=== PATIENT | female | born 1940 | race Hispanic/Latino ===

== ENCOUNTER 2019-07-15 22:51 | Emergency (ER) | payer MEDICARE ==
[~2019-07-15 22:51] MED LIST: ACET1TAB25 PO; ALBU1.252 IH; AMLO5TAB9 PO; ASPI-1197 PO; BUDE10.2 IH; CHOL100044 PO; CYAN25006 SL; DONE5TAB26 PO; DOXY100C40 PO; ESOM40CA PO; FERR325T22 PO; FOLI0.4T2 PO; GABA-531 PO; GLIP5TAB97 PO; LOSA25TA41 PO; METF750T46 PO; PRED20TA3 PO; ROSU40TA21 PO; SITA100T12 PO; SUCR1TAB2 PO
[2019-07-15] MEDS ORDERED: ASPIRIN 325 MG TABLET ONE (23:12)
[2019-07-15 23:21] LABS: BASOPHILS % (AUTO) 2.4 % (0.0-5.0); EOSINOPHILS % (AUTO) 2.6 % (0.0-8.0); HEMATOCRIT 28.1 % (36-48); LYMPHOCYTES % (AUTO) 20.2 % (21.0-51.0); MEAN CORPUSCULAR HEMOGLOBIN 27.9 pg (27.0-33.0); MEAN CORPUSCULAR HGB CONC 33.3 g/dL (32.0-36.0); MEAN CORPUSCULAR VOLUME 83.6 fL (79-99); MONOCYTES % (AUTO) 10.4 % (3.0-13.0); NEUTROPHILS % (AUTO) 64.4 % (40.0-77.0); PLATELET COUNT (AUTO) 304 K/uL (130-400); RED BLOOD CELL COUNT(AUTO) 3.37 MIL/uL (4.00-5.50); RED CELL DISTRIBUTION WIDTH 17.1 % (11.0-15.5); WHITE BLOOD COUNT (AUTO) 7.8 K/uL (4.8-10.8)
[2019-07-15 23:31] LABS: CREATININE 0.7 mg/dL (0.5-1.5); POTASSIUM 3.9 mmol/L (3.5-5.1)
[2019-07-15 23:32] LABS: PARTIAL THROMBOPLASTIN TIME 29.9 SEC (26.3-35.5)
[2019-07-15 23:37] LABS: ALBUMIN 3.7 g/dL (3.5-5.0); BILIRUBIN,TOTAL 0.3 mg/dL (0.2-1.0); TOTAL PROTEIN, SERUM 8.1 g/dL (6.0-8.3)
[2019-07-15 23:41] LABS: INR 0.97 (0.85-1.15); PROTHROMBIN TIME 10.2 SEC (9.6-11.6)
[2019-07-15 23:53] LABS: APPEARANCE,URINE Clear (CLEAR); BILIRUBIN,URINE Negative (NEGATIVE); COLOR,URINE Yellow (YELLOW); GLUCOSE, URINE (UA) >=1000 mg/dL (NEGATIVE); KETONES,URINE 15 mg/dL (NEGATIVE); LEUKOCYTE ESTERASE ,URINE Negative (NEGATIVE); NITRATE,URINE Negative (NEGATIVE); OCCULT BLOOD,URINE Negative (NEGATIVE); PH,URINE 6.5 (5.0-8.0); PROTEIN,URINE Negative (NEGATIVE)
[2019-07-16 00:17] LABS: BACTERIA,URINE None Seen /HPF (None Seen); RBC,URINE None Seen /HPF (0-1); WBC,URINE None Seen /HPF (0-1)
[2019-07-16] MEDS ORDERED: PREDNISONE 20 MG TABLET ONE (01:45)
== END 2019-07-16 01:53 | disposition home or self-care (01) ==
LOC: EDH 22:51
DX: J45.901 Unspecified asthma with (acute) exacerbation (principal); E11.9 Type 2 diabetes mellitus without complications; E78.5 Hyperlipidemia, unspecified; I10 Essential (primary) hypertension; M19.90 Unspecified osteoarthritis, unspecified site; Z88.8 Allergy status to other drugs, medicaments and biological substances; Z90.710 Acquired absence of both cervix and uterus; Z98.890 Other specified postprocedural states
CPT/HCPCS: 36415; 71045; 80053; 81001; 82550; 84484; 85025; 85610; 85730; 93005

== ENCOUNTER 2019-12-12 23:08 | Observation (INO) | payer MEDICARE ==
[~2019-12-12] VITALS: Ht 149.9 cm; Wt 45.8 kg
[2019-12-12 23:27] LABS: BASOPHILS % (AUTO) 0.4 % (0.0-5.0); EOSINOPHILS % (AUTO) 4.2 % (0.0-8.0); HEMATOCRIT 27.1 % (36-48); LYMPHOCYTES % (AUTO) 37.4 % (21.0-51.0); MEAN CORPUSCULAR HEMOGLOBIN 27.3 pg (27.0-33.0); MEAN CORPUSCULAR HGB CONC 33.2 g/dL (32.0-36.0); MEAN CORPUSCULAR VOLUME 82.1 fL (79-99); MONOCYTES % (AUTO) 9.6 % (3.0-13.0); NEUTROPHILS % (AUTO) 48.2 % (40.0-77.0); PLATELET COUNT (AUTO) 322 K/uL (130-400); RED CELL DISTRIBUTION WIDTH 15.6 % (11.0-15.5); WHITE BLOOD COUNT (AUTO) 5.2 K/uL (4.8-10.8)
[2019-12-12 23:38] LABS: CREATININE 0.8 mg/dL (0.5-1.5); POTASSIUM 3.8 mmol/L (3.5-5.1)
[2019-12-12 23:40] LABS: INR 0.97 (0.85-1.15); PARTIAL THROMBOPLASTIN TIME 29.6 SEC (26.3-35.5); PROTHROMBIN TIME 10.5 SEC (9.6-11.6)
[2019-12-12 23:42] LABS: ALBUMIN 3.1 g/dL (3.5-5.0); BILIRUBIN,TOTAL 0.2 mg/dL (0.2-1.0); TOTAL PROTEIN, SERUM 7.3 g/dL (6.0-8.3)
[2019-12-13 00:07] LABS: APPEARANCE,URINE Clear (CLEAR); BILIRUBIN,URINE Negative (NEGATIVE); COLOR,URINE Yellow (YELLOW); GLUCOSE, URINE (UA) >=1000 mg/dL (NEGATIVE); KETONES,URINE Negative (NEGATIVE); LEUKOCYTE ESTERASE ,URINE Negative (NEGATIVE); NITRATE,URINE Negative (NEGATIVE); OCCULT BLOOD,URINE Negative (NEGATIVE); PROTEIN,URINE Negative (NEGATIVE); UROBILINOGEN,URINE 0.2 mg/dL (0.2-1.0)
[2019-12-13] MEDS ORDERED: INSULIN HUMULIN R 100 UNIT/ML 3ML ONE (00:44)
[2019-12-13] MEDS ORDERED: SODIUM CHLORIDE 0.9% 1000ML 1,000 ML IV ONE (00:57)
[2019-12-13 00:58] LABS: BACTERIA,URINE Rare /HPF (None Seen); RBC,URINE 0-1 /HPF (0-1); WBC,URINE 0-1 /HPF (0-1); YEAST,URINE BUDDING Rare /HPF (None Seen)
[2019-12-13] MEDS ORDERED: ACETAMINOPHEN 325 MG TAB PO PRN ×2 (01:30)
[2019-12-13] MEDS ORDERED: ONDANSETRON HCL 4 MG/2 ML VIAL IVP PRN (01:30)
[2019-12-13] MEDS: SODIUM CHLORIDE 0.9% 1000ML 1,000 ML IV SCH ×2 (01:30→14:50)
[2019-12-13] MEDS ORDERED: ENOXAPARIN SODIUM 40 MG/0.4 ML SYRINGE SQ SCH (02:00)
[2019-12-13 02:30] VITALS: BP 115/57
[2019-12-13] MEDS ORDERED: GLIP10TA19 PO (02:44)
[2019-12-13] MEDS ORDERED: ACET-2743 PO (02:44)
[2019-12-13] MEDS ORDERED: MONT10TA26 PO (02:44)
[2019-12-13] MEDS ORDERED: TELM40TA8 PO (02:44)
[2019-12-13] MEDS ORDERED: [UNRECOGNIZED DRUG - CODE] PO (02:44)
[2019-12-13] MEDS ORDERED: AMLO5TAB9 PO (02:44)
[2019-12-13] MEDS ORDERED: METF-446 PO (02:44)
[2019-12-13] MEDS ORDERED: NAPR220C62 PO (02:44)
[2019-12-13] MEDS ORDERED: SIMV-43 PO (02:44)
[2019-12-13] MEDS ORDERED: OMEP20TA25 PO (02:44)
[2019-12-13 05:19] LABS: BASOPHILS % (AUTO) 0.3 % (0.0-5.0); EOSINOPHILS % (AUTO) 3.1 % (0.0-8.0); HEMATOCRIT 26.6 % (36-48); LYMPHOCYTES % (AUTO) 30.2 % (21.0-51.0); MEAN CORPUSCULAR HEMOGLOBIN 26.9 pg (27.0-33.0); MEAN CORPUSCULAR HGB CONC 32.7 g/dL (32.0-36.0); MEAN CORPUSCULAR VOLUME 82.1 fL (79-99); MONOCYTES % (AUTO) 10.3 % (3.0-13.0); NEUTROPHILS % (AUTO) 55.8 % (40.0-77.0); PLATELET COUNT (AUTO) 258 K/uL (130-400); RED BLOOD CELL COUNT(AUTO) 3.24 MIL/uL (4.00-5.50); RED CELL DISTRIBUTION WIDTH 15.5 % (11.0-15.5); WHITE BLOOD COUNT (AUTO) 6.2 K/uL (4.8-10.8)
[2019-12-13 05:34] LABS: CREATININE 0.6 mg/dL (0.5-1.5); POTASSIUM 3.8 mmol/L (3.5-5.1)
[2019-12-13] MEDS: PANTOPRAZOLE SODIUM 40 MG TABLET.DR PO SCH (06:48)
[2019-12-13 08:00] VITALS: BP 122/65
[2019-12-13] MEDS ORDERED: POTASSIUM CHLORIDE 20 MEQ ERTAB PO PRN (08:45)
[2019-12-13] MEDS ORDERED: LIDOCAINE HCL-MPF 1% 2ML VIAL IV PRN (08:45)
[2019-12-13] MEDS ORDERED: POTASSIUM CHLORIDE 20MEQ/100ML 100 ML IV PRN (08:45)
[2019-12-13] MEDS ORDERED: DEXTROSE 50%-WATER 50 ML DISP.SYRIN IV PRN (08:45)
[2019-12-13] MEDS ORDERED: POTASSIUM CHLORIDE 10% ELIXIR 20 MEQ/15 ML UDCUP PO PRN (08:45)
[2019-12-13] MEDS ORDERED: GLUCAGON 1MG KIT 1 MG ML IM PRN (08:45)
[2019-12-13 09:01] LABS: MAGNESIUM 1.6 mg/dL (1.80-2.40); PHOSPHORUS 2.9 mg/dL (2.5-4.9)
[2019-12-13] MEDS: LOSARTAN 50 MG TABLET PO SCH (09:30)
[2019-12-13] MEDS: AMLODIPINE BESYLATE 5 MG TAB PO SCH (09:31)
[2019-12-13] MEDS: MONTELUKAST SODIUM 10 MG TAB PO SCH (09:31)
[2019-12-13] MEDS: GLIPIZIDE XL 10MG TAB PO SCH (09:31)
[2019-12-13] MEDS: ASPIRIN 81MG TAB.CHEW PO SCH (09:31)
[2019-12-13] MEDS: GABAPENTIN 300 MG CAPSULE PO SCH ×3 (09:31→20:54)
[2019-12-13 11:46] VITALS: BP 126/55
[2019-12-13] MEDS: INSULIN HUMULIN R 100 UNIT/ML 3ML SQ SCH ×3 (12:35→20:57)
[2019-12-13 16:00] VITALS: BP 106/56
[2019-12-13] MEDS ORDERED: IOHEXOL-350 75 ML VIAL IV ONE (16:30)
[2019-12-13] MEDS: METFORMIN HCL 500 MG TABLET PO SCH (16:53)
--- NOTE | 2019-12-13 18:44 | NUR ---
Transferred to [facility] via EMS after report given at 181; pt. to [facility] via stretcher by ambulance. Castillo cath intact, flushing well to R chest; Dressings to abdomen and coccyx changed per MD order. LS diminished, suctioned of small amt frothy white sputum. Discharge complete.
[2019-12-13 19:41] VITALS: BP 120/58
[2019-12-13] MEDS: ENOXAPARIN SODIUM 40 MG/0.4 ML SYRINGE SQ SCH (20:55)
[2019-12-13] MEDS ORDERED: SIMVASTATIN 20 MG TABLET PO SCH (21:00)
[2019-12-14] VITALS: BP 104/51
[2019-12-14 04:00] VITALS: BP 99/53
[2019-12-14] MEDS: SODIUM CHLORIDE 0.9% 1000ML 1,000 ML IV SCH (04:28)
--- NOTE | 2019-12-14 04:29 | NUR ---
HOLD METFORMIN MORNING DOSE OF METFORMIN HELD AT THIS TIME DUE TO PT HAVING CTA CHEST WITHIN THE LAST 24 HOURS
[2019-12-14] MEDS: METFORMIN HCL 500 MG TABLET PO SCH (04:33)
[2019-12-14 04:59] LABS: HEMATOCRIT 28.7 % (36-48); MEAN CORPUSCULAR HGB CONC 32.4 g/dL (32.0-36.0); MEAN CORPUSCULAR VOLUME 83.2 fL (79-99); PLATELET COUNT (AUTO) 297 K/uL (130-400); RED BLOOD CELL COUNT(AUTO) 3.45 MIL/uL (4.00-5.50); RED CELL DISTRIBUTION WIDTH 15.9 % (11.0-15.5); WHITE BLOOD COUNT (AUTO) 6.4 K/uL (4.8-10.8)
[2019-12-14 05:27] LABS: CREATININE 0.6 mg/dL (0.5-1.5); POTASSIUM 3.7 mmol/L (3.5-5.1)
[2019-12-14] MEDS: PANTOPRAZOLE SODIUM 40 MG TABLET.DR PO SCH (06:41)
[2019-12-14] MEDS: INSULIN HUMULIN R 100 UNIT/ML 3ML SQ SCH ×2 (06:42→11:58)
[2019-12-14 08:00] VITALS: BP 102/55
[2019-12-14] MEDS: GABAPENTIN 300 MG CAPSULE PO SCH (09:21)
[2019-12-14] MEDS: ASPIRIN 81MG TAB.CHEW PO SCH (09:21)
[2019-12-14] MEDS: GLIPIZIDE XL 10MG TAB PO SCH (09:21)
[2019-12-14] MEDS: MONTELUKAST SODIUM 10 MG TAB PO SCH (09:21)
[2019-12-14] MEDS: LOSARTAN 50 MG TABLET PO SCH (09:22)
[2019-12-14] MEDS: AMLODIPINE BESYLATE 5 MG TAB PO SCH (09:22)
[2019-12-14] MEDS: ENOXAPARIN SODIUM 40 MG/0.4 ML SYRINGE SQ SCH (09:23)
[2019-12-14 11:28] VITALS: BP 124/72
--- NOTE | 2019-12-14 11:33 | NUR ---
SHORT STAY PATIENT , CHEST PAIN, AMI RULED OUT, POSS DC THIS AFTERNOON, NO TRIGGERS TO CM, OBS PATIENT- DETAILED CM ASSESSMENT DEFERRED AT THIS TIME NO CONCERNS VOICED BY RN OR PATIENT Addendum: 12/14/19 at 1135 by PANFILO YATES RN CM Amended: Links added.
--- NOTE | 2019-12-14 14:55 | NUR ---
Patient given discharge instruction and verbalized understanding, reviewed medication and follow-up , denies pain at this time ,no questions or concerns voice and patient taking down to ER lobby via wheelchair and left with family for home.
== END 2019-12-14 15:01 | disposition home or self-care (01) ==
LOC: EDH 23:08 → EDHIP 12-13 00:54 → 4DH 12-13 02:48
PROVIDERS: ADMIT Internal Medicine Critical Care Medicine; ATTEND Internal Medicine Critical Care Medicine
DX: R07.89 Other chest pain (principal); I24.9 Acute ischemic heart disease, unspecified; J44.9 Chronic obstructive pulmonary disease, unspecified; R55 Syncope and collapse; R42 Dizziness and giddiness; E78.5 Hyperlipidemia, unspecified; E87.1 Hypo-osmolality and hyponatremia; E11.9 Type 2 diabetes mellitus without complications; K29.70 Gastritis, unspecified, without bleeding; I10 Essential (primary) hypertension; Z90.710 Acquired absence of both cervix and uterus; Z88.8 Allergy status to other drugs, medicaments and biological substances
CPT/HCPCS: 36415 ×3; 71045 ×3; 71275; 80048 ×2; 80053; 81001; 82550; 82948 ×6; 83735; 83880; 84100; 84484 ×3; 85025 ×2; 85027; 85378; 85610; 85730; 93005; 93970; 96360; 96361; 96372 ×2; 99285; G0378 ×25; J1650 ×4; J1815 ×4; J7030; Q9967

== ENCOUNTER 2020-01-09 15:48 | Emergency (ER) | payer MEDICARE ==
[~2020-01-09 15:48] MED LIST changes: +ACET-2743 PO; -ACET1TAB25 PO; -ALBU1.252 IH; -BUDE10.2 IH; -CHOL100044 PO; -CYAN25006 SL; -DONE5TAB26 PO; -DOXY100C40 PO; -ESOM40CA PO; -FERR325T22 PO; -FOLI0.4T2 PO; +GLIP10TA19 PO; -GLIP5TAB97 PO; -LOSA25TA41 PO; +METF-446 PO; -METF750T46 PO; +MONT10TA26 PO; +NAPR220C62 PO; +OMEP20TA25 PO; -PRED20TA3 PO; -ROSU40TA21 PO; +SIMV-43 PO; -SITA100T12 PO; +TELM40TA8 PO; +[UNRECOGNIZED DRUG - CODE] PO
[2020-01-09 16:23] LABS: BASOPHILS % (AUTO) 0.3 % (0.0-5.0); EOSINOPHILS % (AUTO) 2.7 % (0.0-8.0); HEMATOCRIT 27.7 % (36-48); LYMPHOCYTES % (AUTO) 33.6 % (21.0-51.0); MEAN CORPUSCULAR HEMOGLOBIN 26.5 pg (27.0-33.0); MEAN CORPUSCULAR HGB CONC 32.1 g/dL (32.0-36.0); MEAN CORPUSCULAR VOLUME 82.4 fL (79-99); NEUTROPHILS % (AUTO) 54.1 % (40.0-77.0); PLATELET COUNT (AUTO) 375 K/uL (130-400); RED BLOOD CELL COUNT(AUTO) 3.36 MIL/uL (4.00-5.50); RED CELL DISTRIBUTION WIDTH 15.3 % (11.0-15.5); WHITE BLOOD COUNT (AUTO) 6.6 K/uL (4.8-10.8)
[2020-01-09 16:50] LABS: CREATININE 0.6 mg/dL (0.5-1.5); MAGNESIUM 1.5 mg/dL (1.80-2.40); POTASSIUM 4.1 mmol/L (3.5-5.1)
[2020-01-09] MEDS ORDERED: MAGNESIUM OXIDE 400 MG TABLET PO ONE (18:19)
== END 2020-01-09 19:14 | disposition home or self-care (01) ==
LOC: EDH 15:48
DX: E87.1 Hypo-osmolality and hyponatremia (principal); E11.9 Type 2 diabetes mellitus without complications; E78.5 Hyperlipidemia, unspecified; I10 Essential (primary) hypertension; M19.90 Unspecified osteoarthritis, unspecified site; Z88.2 Allergy status to sulfonamides; Z88.8 Allergy status to other drugs, medicaments and biological substances; Z90.710 Acquired absence of both cervix and uterus
CPT/HCPCS: 36415; 80048; 83735; 85025; 93005

== ENCOUNTER 2021-01-06 03:37 | Emergency (ER) | payer MEDICARE ==
[~2021-01-06 03:37] MED LIST changes: +AMLO-257 PO; -AMLO5TAB9 PO; +IBUP-43 PO; -MONT10TA26 PO; +MONT10TA32 PO; -[UNRECOGNIZED DRUG - CODE] PO
[2021-01-06 04:02] LABS: BASOPHILS % (AUTO) 0.3 % (0.0-5.0); LYMPHOCYTES % (AUTO) 34.7 % (21.0-51.0); MEAN CORPUSCULAR HEMOGLOBIN 24.5 pg (27.0-33.0); MEAN CORPUSCULAR HGB CONC 30.7 g/dL (32.0-36.0); MEAN CORPUSCULAR VOLUME 79.8 fL (79-99); MONOCYTES % (AUTO) 8.7 % (3.0-13.0); NEUTROPHILS % (AUTO) 52.1 % (40.0-77.0); PLATELET COUNT (AUTO) 344 K/uL (130-400); RED BLOOD CELL COUNT(AUTO) 3.76 MIL/uL (4.00-5.50); RED CELL DISTRIBUTION WIDTH 16.9 % (11.0-15.5); WHITE BLOOD COUNT (AUTO) 6.3 K/uL (4.8-10.8)
[2021-01-06 04:10] LABS: APPEARANCE,URINE Clear (CLEAR); BILIRUBIN,URINE Negative (NEGATIVE); COLOR,URINE Yellow (YELLOW); GLUCOSE, URINE (UA) TRACE mg/dL (NEGATIVE); KETONES,URINE Negative (NEGATIVE); LEUKOCYTE ESTERASE ,URINE Trace (NEGATIVE); NITRATE,URINE Negative (NEGATIVE); OCCULT BLOOD,URINE Negative (NEGATIVE); PROTEIN,URINE Negative (NEGATIVE); UROBILINOGEN,URINE 0.2 mg/dL (0.2-1.0)
[2021-01-06 04:12] LABS: CREATININE 0.7 mg/dL (0.5-1.5); POTASSIUM 3.6 mmol/L (3.5-5.1)
[2021-01-06 04:16] LABS: ALBUMIN 3.8 g/dL (3.5-5.0); BILIRUBIN,TOTAL 0.3 mg/dL (0.2-1.0); TOTAL PROTEIN, SERUM 8.3 g/dL (6.0-8.3)
[2021-01-06 04:17] LABS: INR 1.05 (0.85-1.15); PROTHROMBIN TIME 11.4 SEC (9.6-11.6)
[2021-01-06 04:18] LABS: PARTIAL THROMBOPLASTIN TIME 30.2 SEC (26.3-35.5)
[2021-01-06 04:25] LABS: BACTERIA,URINE Few /HPF (None Seen); RBC,URINE 0-1 /HPF (0-1); WBC,URINE 0-1 /HPF (0-1)
[2021-01-06] MEDS ORDERED: CEFTRIAXONE SODIUM 1 GM ONE (05:42)
== END 2021-01-06 06:44 | disposition home or self-care (01) ==
LOC: EDH 03:37
DX: N39.0 Urinary tract infection, site not specified (principal); M19.90 Unspecified osteoarthritis, unspecified site; E11.9 Type 2 diabetes mellitus without complications; E78.5 Hyperlipidemia, unspecified; I10 Essential (primary) hypertension; Z90.710 Acquired absence of both cervix and uterus; Z88.2 Allergy status to sulfonamides
CPT/HCPCS: 36415; 80053; 81001; 84484; 85025; 85610; 85730; 93005; 96365; 99284; J0696

== ENCOUNTER 2022-05-10 22:26 | Observation (INO) | payer OTHER, MEDICARE ==
[~2022-05-10] VITALS: Ht 139.7 cm; Wt 50.6 kg
[~2022-05-10 22:26] MED LIST changes: -IBUP-43 PO; +IBUP-44 PO; +MONT-39 PO; -MONT10TA32 PO; +OMEP20TA20 PO; -OMEP20TA25 PO
[2022-05-10] MEDS ORDERED: ONDANSETRON 4MG INJ ONE (22:42)
[2022-05-10] MEDS ORDERED: MORPHINE 4 MG SYG ONE (22:42)
[2022-05-10 22:47] LABS: BASOPHILS % (AUTO) 0.2 % (0.0-5.0); EOSINOPHILS % (AUTO) 1.4 % (0.0-8.0); HEMATOCRIT 25.9 % (36-48); MEAN CORPUSCULAR HEMOGLOBIN 24.3 pg (27.0-33.0); MEAN CORPUSCULAR HGB CONC 31.7 g/dL (32.0-36.0); MEAN CORPUSCULAR VOLUME 76.9 fL (79-99); MONOCYTES % (AUTO) 7.3 % (3.0-13.0); NEUTROPHILS % (AUTO) 80.6 % (40.0-77.0); PLATELET COUNT (AUTO) 327 K/uL (130-400); RED BLOOD CELL COUNT(AUTO) 3.37 MIL/uL (4.00-5.50); RED CELL DISTRIBUTION WIDTH 18.7 % (11.0-15.5); WHITE BLOOD COUNT (AUTO) 11.9 K/uL (4.8-10.8)
[2022-05-10 23:09] LABS: CREATININE 0.7 mg/dL (0.5-1.5); POTASSIUM 3.6 mmol/L (3.5-5.1)
[2022-05-10 23:13] LABS: ALBUMIN 3.3 g/dL (3.5-5.0); TOTAL PROTEIN, SERUM 7.5 g/dL (6.0-8.3)
[2022-05-11] MEDS ORDERED: 0.9%NACL 1000ML 1,000 ML IV ONE (00:30)
[2022-05-11 00:32] LABS: APPEARANCE,URINE CLEAR (CLEAR); BILIRUBIN,URINE NEGATIVE (NEGATIVE); COLOR,URINE YELLOW (YELLOW); GLUCOSE, URINE (UA) >=1000 mg/dL (NEGATIVE); KETONES,URINE 5 mg/dL (NEGATIVE); LEUKOCYTE ESTERASE ,URINE NEGATIVE (NEGATIVE); NITRATE,URINE NEGATIVE (NEGATIVE); OCCULT BLOOD,URINE NEGATIVE (NEGATIVE); PROTEIN,URINE NEGATIVE (NEGATIVE); UROBILINOGEN,URINE 0.2 mg/dL (0.2-1.0)
[2022-05-11] MEDS ORDERED: DONE10TA43 PO (00:38)
[2022-05-11 00:39] LABS: BACTERIA,URINE Few /HPF (None Seen); RBC,URINE 0-1 /HPF (0-1); SQUAMOUS EPITHELIAL CELL,UR 0-2 /HPF (0-2); WBC,URINE 0-1 /HPF (0-1)
[2022-05-11] MEDS ORDERED: DAPA10TA PO (00:42)
[2022-05-11] MEDS ORDERED: CHOL400T33 PO (00:42)
[2022-05-11] MEDS ORDERED: CYAN250010 PO (00:42)
[2022-05-11] MEDS ORDERED: HYDRALAZINE 20MG/ML VIAL IV PRN (01:00)
[2022-05-11] MEDS ORDERED: MORPHINE 2 MG SYG IVP PRN (01:00)
[2022-05-11] MEDS ORDERED: LABETALOL 20MG SYG IV PRN (01:00)
[2022-05-11] MEDS ORDERED: MORPHINE 4 MG SYG IVP PRN (01:00)
[2022-05-11] MEDS ORDERED: HYDROMORPHONE 1 MG INJ IVP PRN (01:00)
[2022-05-11] MEDS ORDERED: ONDANSETRON 4MG INJ IVP PRN (01:00)
[2022-05-11] MEDS ORDERED: CLONIDINE HCL 0.1 MG TABLET PO PRN (01:00)
[2022-05-11] MEDS ORDERED: MORPHINE 4 MG SYG ONE (01:04)
[2022-05-11] MEDS ORDERED: KETOROLAC 15MG/ML VIAL (15MG/ML) ONE (01:04)
[2022-05-11] MEDS ORDERED: KETOROLAC 15MG/ML VIAL (15MG/ML) IV ONE (01:30)
[2022-05-11] MEDS ORDERED: MORPHINE 4 MG SYG IVP ONE (01:30)
[2022-05-11 01:50] VITALS: BP 191/86
[2022-05-11] MEDS: HYDROCODONE/ACETAMINOPHEN 5/325 MG TAB PO PRN ×2 (03:11→20:56)
[2022-05-11 04:00] VITALS: BP 140/71
[2022-05-11] MEDS ORDERED: ALPRAZOLAM 0.25 MG TABLET ONE (04:09)
[2022-05-11] MEDS ORDERED: ALPRAZOLAM 0.25 MG TABLET PO ONE (04:30)
[2022-05-11 04:47] LABS: HEMATOCRIT 24.7 % (36-48); MEAN CORPUSCULAR HEMOGLOBIN 24.4 pg (27.0-33.0); MEAN CORPUSCULAR HGB CONC 31.6 g/dL (32.0-36.0); MEAN CORPUSCULAR VOLUME 77.2 fL (79-99); RED BLOOD CELL COUNT(AUTO) 3.2 MIL/uL (4.00-5.50); RED CELL DISTRIBUTION WIDTH 18.6 % (11.0-15.5); WHITE BLOOD COUNT (AUTO) 12.3 K/uL (4.8-10.8)
[2022-05-11 05:06] LABS: CREATININE 0.8 mg/dL (0.5-1.5); PHOSPHORUS 3.9 mg/dL (2.5-4.9); POTASSIUM 3.7 mmol/L (3.5-5.1)
[2022-05-11] MEDS: INSULIN HUMULIN R 100 UNIT/ML 3ML SQ SCH ×4 (06:12→20:50)
[2022-05-11 07:00] VITALS: BP 117/58
[2022-05-11] MEDS: ENOXAPARIN SODIUM 40 MG/0.4 ML SYRINGE SQ SCH (08:56)
[2022-05-11 11:00] VITALS: BP 179/74
[2022-05-11] MEDS: HYDROMORPHONE 1 MG INJ IVP PRN ×2 (11:16→17:25)
[2022-05-11] MEDS: LACTATED RINGERS 1000ML 1,000 ML IV SCH ×2 (11:18→20:55)
[2022-05-11 15:00] VITALS: BP 143/76
[2022-05-11] MEDS: ALPRAZOLAM 0.25 MG TABLET PO PRN (19:48)
[2022-05-11 20:00] VITALS: BP 163/67
[2022-05-12] VITALS: BP 147/60
[2022-05-12] MEDS: HYDROMORPHONE 1 MG INJ IVP PRN ×2 (03:19→11:27)
[2022-05-12 04:00] VITALS: BP 151/64
[2022-05-12 04:40] LABS: INR 1.01 (0.85-1.15)
[2022-05-12 04:41] LABS: PARTIAL THROMBOPLASTIN TIME 32.2 SEC (26.3-35.5)
[2022-05-12 04:52] LABS: BASOPHILS % (AUTO) 0.3 % (0.0-5.0); EOSINOPHILS % (AUTO) 2.8 % (0.0-8.0); HEMATOCRIT 22.1 % (36-48); LYMPHOCYTES % (AUTO) 15.7 % (21.0-51.0); MEAN CORPUSCULAR HEMOGLOBIN 24.6 pg (27.0-33.0); MEAN CORPUSCULAR HGB CONC 32.1 g/dL (32.0-36.0); MEAN CORPUSCULAR VOLUME 76.5 fL (79-99); MONOCYTES % (AUTO) 9.1 % (3.0-13.0); NEUTROPHILS % (AUTO) 71.7 % (40.0-77.0); PLATELET COUNT (AUTO) 302 K/uL (130-400); RED BLOOD CELL COUNT(AUTO) 2.89 MIL/uL (4.00-5.50); RED CELL DISTRIBUTION WIDTH 18.6 % (11.0-15.5); WHITE BLOOD COUNT (AUTO) 7.9 K/uL (4.8-10.8)
[2022-05-12 04:55] LABS: ALBUMIN 2.8 g/dL (3.5-5.0); CREATININE 0.5 mg/dL (0.5-1.5); MAGNESIUM 1.6 mg/dL (1.80-2.40); POTASSIUM 3.5 mmol/L (3.5-5.1); THYROID STIMULATING HORMONE 3.22 uIU/mL (0.36-3.74); TOTAL PROTEIN, SERUM 6.7 g/dL (6.0-8.3)
[2022-05-12] MEDS: INSULIN HUMULIN R 100 UNIT/ML 3ML SQ SCH ×2 (05:40→11:28)
[2022-05-12] MEDS: HYDROCODONE/ACETAMINOPHEN 5/325 MG TAB PO PRN ×2 (05:42→13:53)
[2022-05-12] MEDS: LACTATED RINGERS 1000ML 1,000 ML IV SCH (06:08)
[2022-05-12] MEDS: ALPRAZOLAM 0.25 MG TABLET PO PRN ×2 (06:53→13:38)
[2022-05-12 08:02] VITALS: BP 141/57
[2022-05-12] MEDS ORDERED: PANTOPRAZOLE 40 MG TAB DR PO SCH (09:00)
[2022-05-12] MEDS: ENOXAPARIN SODIUM 40 MG/0.4 ML SYRINGE SQ SCH (09:33)
[2022-05-12 11:11] VITALS: BP 142/67
== END 2022-05-12 14:41 | disposition home or self-care (01) ==
LOC: EDH 22:26 → EDHIP 05-11 00:52 → 4BH 05-11 01:38
PROVIDERS: ADMIT Internal Medicine; ATTEND Internal Medicine
DX: S42.401A Unspecified fracture of lower end of right humerus, initial encounter for closed fracture (principal); D64.9 Anemia, unspecified; I10 Essential (primary) hypertension; E11.9 Type 2 diabetes mellitus without complications; E87.1 Hypo-osmolality and hyponatremia; F41.9 Anxiety disorder, unspecified; F03.90 Unspecified dementia, unspecified severity, without behavioral disturbance, psychotic disturbance, mood disturbance, and anxiety; I21.9 Acute myocardial infarction, unspecified; R11.2 Nausea with vomiting, unspecified; M81.0 Age-related osteoporosis without current pathological fracture; Z96.611 Presence of right artificial shoulder joint; Z79.899 Other long term (current) drug therapy; Z98.890 Other specified postprocedural states; Z79.84 Long term (current) use of oral hypoglycemic drugs; Z91.81 History of falling; Z79.82 Long term (current) use of aspirin; W18.09XA Striking against other object with subsequent fall, initial encounter; Y93.89 Activity, other specified; Y92.89 Other specified places as the place of occurrence of the external cause; Y99.8 Other external cause status
CPT/HCPCS: 29125; 96374; 99285; 80053 ×2; 85025 ×2; 86850; 86900; 36415 ×3; 73060; 96376 ×2; 96372 ×2; 96361 ×2; 96375; 84100; 80048; 85027; 86901; 82948 ×6; 83930; 83935; 82533; 81001; 71045; 93005; 84443; 83735; 85610; 85730; J1815 ×2; J2405; J2270 ×2; G0378 ×37; J7120 ×3; J1170 ×4; J7030; J1650 ×2; J1885

== ENCOUNTER → 2023-08-28 | Outpatient (CLI) | payer OTHER, MEDICARE ==
[~2023-08-28] MED LIST changes: +CHOL400T33 PO; +CYAN250010 PO; +DAPA10TA PO; +DONE10TA43 PO
== END | disposition home or self-care (01) ==
LOC: RAH 09:24
PROVIDERS: ATTEND Family Medicine
DX: M19.021 Primary osteoarthritis, right elbow (principal); M25.521 Pain in right elbow
CPT/HCPCS: 73080

== ENCOUNTER 2024-03-04 02:53 | Emergency (ER) | payer OTHER, MEDICARE ==
[~2024-03-04] VITALS: Ht 149.9 cm; Wt 49.9 kg
[2024-03-04 03:22] VITALS: BP 140/86; PULSE 73; RESP 18; O2SAT 97
== END 2024-03-04 04:12 | disposition left against medical advice (07) ==
LOC: EDH 02:53
DX: R53.1 Weakness (principal); M79.10 Myalgia, unspecified site; Z53.21 Procedure and treatment not carried out due to patient leaving prior to being seen by health care provider
CPT/HCPCS: 99281

== ENCOUNTER 2024-07-18 15:13 | Inpatient (IN) | payer OTHER, MEDICARE ==
[~2024-07-18] VITALS: Ht 149.9 cm; Wt 55.6 kg
[2024-07-18 16:07] LABS: BASOPHILS # (AUTO) 0.02 K/uL (0.00-0.20); BASOPHILS % (AUTO) 0.2 % (0.0-5.0); EOSINOPHILS # (AUTO) 0.07 K/uL (0.00-0.70); EOSINOPHILS % (AUTO) 0.8 % (0.0-8.0); IMMATURE GRANULOCYTE ABSOLUTE 0.04 K/uL (0-1); LYMPHOCYTES % (AUTO) 11.8 % (21.0-51.0); MEAN CORPUSCULAR HEMOGLOBIN 31.1 pg (27.0-33.0); MEAN CORPUSCULAR HGB CONC 33.7 g/dL (32.0-36.0); MEAN CORPUSCULAR VOLUME 92.3 fL (79-99); MONOCYTES # (AUTO) 0.7 K/uL (0.1-1.0); MONOCYTES % (AUTO) 8.3 % (3.0-13.0); NEUTROPHILS # (AUTO) 6.8 K/uL (1.8-7.7); NEUTROPHILS % (AUTO) 78.4 % (40.0-77.0); PLATELET COUNT (AUTO) 368 K/uL (130-400); RED BLOOD CELL COUNT(AUTO) 3.25 MIL/uL (4.00-5.50); RED CELL DISTRIBUTION WIDTH 13.5 % (11.0-15.5); WHITE BLOOD COUNT (AUTO) 8.7 K/uL (4.8-10.8)
[2024-07-18 16:18] LABS: ADD UA MICROSCOPIC YES; APPEARANCE,URINE CLEAR (CLEAR); BILIRUBIN,URINE NEGATIVE (NEGATIVE); COLOR,URINE COLORLESS (YELLOW); GLUCOSE, URINE (UA) >=1000 mg/dL (NEGATIVE); KETONES,URINE 5 mg/dL (NEGATIVE); LEUKOCYTE ESTERASE ,URINE NEGATIVE Leu/uL (NEGATIVE); NITRATE,URINE NEGATIVE (NEGATIVE); OCCULT BLOOD,URINE NEGATIVE (NEGATIVE); PH,URINE 6.5 (5.0-8.0); PROTEIN,URINE 10 mg/dL (NEGATIVE); UROBILINOGEN,URINE 0.2 mg/dL (0.2-1.0)
[2024-07-18 16:20] LABS: BACTERIA,URINE FEW /HPF (None Seen); RBC,URINE 0-1 /HPF (0-1); SQUAMOUS EPITHELIAL CELL,UR FEW /HPF (0-2)
[2024-07-18 16:33] LABS: ALBUMIN 2.8 g/dL (3.5-5.0); BILIRUBIN,DIRECT 0.1 mg/dL (0.0-0.3); BILIRUBIN,TOTAL 0.5 mg/dL (0.2-1.0); CREATININE 0.7 mg/dL (0.5-1.0); POTASSIUM 3.9 mmol/L (3.5-5.1); TOTAL PROTEIN, SERUM 8.1 g/dL (6.0-8.3)
[2024-07-18] MEDS: ondanSETRON 4MG INJ IVP ONE (17:47)
[2024-07-18] MEDS: morPHINE 2 MG SYG IVP ONE (17:47)
[2024-07-18] MEDS: 0.9%NACL 1000ML 1,000 ML IV ONE (20:05)
[2024-07-18] MEDS ORDERED: PoTASSium chloRIDE 20MEQ/100ML 100 ML IV PRN (21:30)
[2024-07-18] MEDS ORDERED: PoTASSium chl 10% ELIXIR 20MEQ 20 MEQ/15 ML UDCUP PO PRN (21:30)
[2024-07-18] MEDS ORDERED: cefTRIAXone 1G VIAL 1 GM in 0.9%NACL 50ML 50 ML IV SCH (21:30)
[2024-07-18] MEDS ORDERED: acetaMINOPHEN 325 MG TAB PO PRN (21:30)
[2024-07-18] MEDS ORDERED: DEXTROSE 50%-WATER 50 ML DISP.SYRIN IV PRN (21:30)
[2024-07-18] MEDS ORDERED: GLUCAGON 1MG KIT 1 MG ML IM PRN (21:30)
[2024-07-18] MEDS ORDERED: ondanSETRON 4MG INJ IV PRN (21:30)
[2024-07-18] MEDS: cefTRIAXone 1G VIAL IVPB SCH (22:17)
[2024-07-18] MEDS: 0.9%NACL 1000ML 1,000 ML IV SCH (22:17)
[2024-07-18 23:00] VITALS: BP 151/71; PULSE 81; RESP 18; TEMP 97.6
[2024-07-18] MEDS ORDERED: METF-446 PO (23:27)
[2024-07-18] MEDS ORDERED: ERGO500093 PO (23:27)
[2024-07-18] MEDS ORDERED: DULA1.5P SQ (23:27)
[2024-07-18] MEDS ORDERED: ATOR20TA65 PO (23:27)
[2024-07-18] MEDS ORDERED: APRE1TAB3 PO (23:27)
[2024-07-18] MEDS ORDERED: HYDR-3421 PO (23:27)
[2024-07-18] MEDS ORDERED: MELO-106 PO (23:27)
[2024-07-18] MEDS ORDERED: PIOG30TA70 PO (23:27)
[2024-07-18] MEDS ORDERED: TELM20TA8 PO (23:27)
[2024-07-18] MEDS ORDERED: DICL50TA9 PO (23:27)
[2024-07-18] MEDS ORDERED: DAPA10TA PO (23:27)
[2024-07-19 04:00] VITALS: BP 120/58; PULSE 69; RESP 19; TEMP 97.5
[2024-07-19 05:17] LABS: BASOPHILS # (AUTO) 0.01 K/uL (0.00-0.20); BASOPHILS % (AUTO) 0.2 % (0.0-5.0); EOSINOPHILS # (AUTO) 0.16 K/uL (0.00-0.70); EOSINOPHILS % (AUTO) 2.7 % (0.0-8.0); HEMATOCRIT 25.2 % (36-48); IMMATURE GRANULOCYTE ABSOLUTE 0.03 K/uL (0-1); LYMPHOCYTES # (AUTO) 0.8 K/uL (1.0-4.8); LYMPHOCYTES % (AUTO) 12.8 % (21.0-51.0); MEAN CORPUSCULAR HGB CONC 33.7 g/dL (32.0-36.0); MONOCYTES # (AUTO) 0.8 K/uL (0.1-1.0); MONOCYTES % (AUTO) 12.5 % (3.0-13.0); NEUTROPHILS # (AUTO) 4.3 K/uL (1.8-7.7); NEUTROPHILS % (AUTO) 71.3 % (40.0-77.0); PLATELET COUNT (AUTO) 319 K/uL (130-400); RED BLOOD CELL COUNT(AUTO) 2.74 MIL/uL (4.00-5.50); RED CELL DISTRIBUTION WIDTH 13.9 % (11.0-15.5)
[2024-07-19 05:33] LABS: ALBUMIN 2.2 g/dL (3.5-5.0); BILIRUBIN,TOTAL 0.3 mg/dL (0.2-1.0); CREATININE 0.6 mg/dL (0.5-1.0); MAGNESIUM 1.5 mg/dL (1.80-2.40); POTASSIUM 3.7 mmol/L (3.5-5.1); TOTAL PROTEIN, SERUM 6.5 g/dL (6.0-8.3)
[2024-07-19 05:39] LABS: HEMOGLOBIN A1C 11.2 % (4.0-6.0)
[2024-07-19] MEDS: INSULIN humuLIN R 100 UNIT/ML 3ML SQ SCH (05:42)
[2024-07-19] MEDS: MAGNESIUM 2GM PREMIX 50ML 50 ML IV PRN (06:12)
[2024-07-19 07:05] VITALS: BP 146/76; PULSE 89; RESP 18; TEMP 97.6
[2024-07-19] MEDS: FAMOTIDINE 20MG TAB PO SCH (09:42)
[2024-07-19] MEDS: PoTASSium chloRIDE 20MEQ ER 20 MEQ ERTAB PO PRN (09:44)
[2024-07-19 11:05] VITALS: BP 134/68; PULSE 78; RESP 20; TEMP 98.2
[2024-07-19] MEDS: morPHINE 2 MG SYG IVP PRN (13:07)
[2024-07-19 14:00] VITALS: BP 158/64; PULSE 82; RESP 20; TEMP 98.1
[2024-07-19] MEDS: acetaMINOPHEN 325 MG TAB PO PRN (16:02)
[2024-07-19 20:00] VITALS: BP 157/72; PULSE 75; RESP 18; TEMP 98.3
[2024-07-19] MEDS: hydroCORTISONE 25 MG SUPPOSITORY PR PRN (21:09)
[2024-07-19] MEDS: hydrOXYzine 10 MG TABLET PO ONE (21:09)
[2024-07-20] VITALS (7 sets, daily range): BP systolic 139–161; BP diastolic 57–79; PULSE 76–85; RESP 18–20; TEMP 97.2–98.6
[2024-07-20 10:34] LABS: HEMATOCRIT 29.7 % (36-48); MEAN CORPUSCULAR HEMOGLOBIN 31.5 pg (27.0-33.0); MEAN CORPUSCULAR HGB CONC 33.3 g/dL (32.0-36.0); MEAN CORPUSCULAR VOLUME 94.6 fL (79-99); RED BLOOD CELL COUNT(AUTO) 3.14 MIL/uL (4.00-5.50); RED CELL DISTRIBUTION WIDTH 14.2 % (11.0-15.5); WHITE BLOOD COUNT (AUTO) 8.2 K/uL (4.8-10.8)
[2024-07-20 10:43] LABS: CREATININE 0.7 mg/dL (0.5-1.0); POTASSIUM 3.8 mmol/L (3.5-5.1)
[2024-07-20 10:51] LABS: ALBUMIN 2.6 g/dL (3.5-5.0); BILIRUBIN,TOTAL 0.3 mg/dL (0.2-1.0); MAGNESIUM 1.7 mg/dL (1.80-2.40); TOTAL PROTEIN, SERUM 7.6 g/dL (6.0-8.3)
[2024-07-20] MEDS: LIDOCAINE 4% ADH..PATCH TP SCH (11:37)
[2024-07-20] MEDS: doNEPEZil HCL 5 MG TAB PO SCH (19:57)
[2024-07-20] MEDS: hydrOXYzine 25 MG TABLET PO PRN (19:57)
[2024-07-21] VITALS (8 sets, daily range): BP systolic 67–168; BP diastolic 67–87; PULSE 76–95; RESP 17–18; TEMP 97.5–98.9; O2SAT 97
[2024-07-21 05:52] LABS: HEMATOCRIT 31.3 % (36-48); MEAN CORPUSCULAR HEMOGLOBIN 31.2 pg (27.0-33.0); MEAN CORPUSCULAR HGB CONC 33.2 g/dL (32.0-36.0); RED BLOOD CELL COUNT(AUTO) 3.33 MIL/uL (4.00-5.50); RED CELL DISTRIBUTION WIDTH 14.1 % (11.0-15.5); WHITE BLOOD COUNT (AUTO) 7.8 K/uL (4.8-10.8)
[2024-07-21] MEDS: TELMISARTAN PO SCH (09:00)
[2024-07-21] MEDS: APREMILAST PO SCH (09:00)
[2024-07-21 09:22] LABS: CREATININE 0.7 mg/dL (0.5-1.0); POTASSIUM 4.1 mmol/L (3.5-5.1)
[2024-07-21 09:25] LABS: ALBUMIN 2.5 g/dL (3.5-5.0); BILIRUBIN,TOTAL 0.4 mg/dL (0.2-1.0); TOTAL PROTEIN, SERUM 7.8 g/dL (6.0-8.3)
[2024-07-21] MEDS: PIOGLITAZONE 30MG TAB PO SCH (10:34)
[2024-07-21] MEDS: atorVAStatin 20 MG TABLET PO SCH (10:34)
[2024-07-21] MEDS: ASPIRIN 81MG CHEW TAB PO SCH (10:34)
[2024-07-21] MEDS: hydrALAZine 20MG/ML VIAL IV PRN (10:35)
[2024-07-22] VITALS (8 sets, daily range): BP systolic 138–190; BP diastolic 68–91; PULSE 76–98; RESP 17–19; TEMP 97.8–98.6; O2SAT 97
[2024-07-22 05:58] LABS: HEMATOCRIT 31.6 % (36-48); MEAN CORPUSCULAR HGB CONC 33.2 g/dL (32.0-36.0); MEAN CORPUSCULAR VOLUME 93.2 fL (79-99); RED BLOOD CELL COUNT(AUTO) 3.39 MIL/uL (4.00-5.50); RED CELL DISTRIBUTION WIDTH 14.1 % (11.0-15.5); WHITE BLOOD COUNT (AUTO) 7.8 K/uL (4.8-10.8)
[2024-07-22 06:30] LABS: CREATININE 0.6 mg/dL (0.5-1.0); POTASSIUM 3.1 mmol/L (3.5-5.1)
[2024-07-22] MEDS: CYANOCOBALAMIN (VITAMIN B-12) 1,000 MCG TABLET PO SCH (08:10)
[2024-07-22] MEDS: FOLic ACID 1 MG TABLET PO SCH (08:16)
[2024-07-22] MEDS: ketOROlac 15MG/ML VIAL (15MG/ML) IV PRN (08:28)
[2024-07-22] MEDS ORDERED: AMOX1TAB16 PO (12:49)
[2024-07-22] MEDS ORDERED: FOLI1 PO (12:49)
[2024-07-22] MEDS ORDERED: FAMO20TA8 PO (12:49)
[2024-07-22] MEDS: doCUSate SODIUM 100 MG CAP PO PRN (12:53)
[2024-07-23 10:17] LABS: FREE KAPPA LIGHT CHAINS,S 43.2 mg/L (3.3-19.4)
[2024-07-23 15:14] LABS: ALBUMIN (IFE & ELECTROPHOR) 2.7 g/dL (2.9-4.4); ALBUMIN/GLOBULIN RATIO (IFE) 0.6 (0.7-1.7); ALPHA-1 (IFE & PEP) 0.4 g/dL (0.0-0.4); ALPHA-2 (IFE & PEP) 1.3 g/dL (0.4-1.0); BETA (IFE & ELP) 1.5 g/dL (0.7-1.3); GAMMA GLOBULINS (IFE & ELP) 1.4 g/dL (0.4-1.8); GLOBULIN TOTAL (IFE) 4.6 g/dL (2.2-3.9); IGA (IFE) 913 mg/dL (64-422); IGG (IMMUNOFIXATION) 1233 mg/dL (586-1602); IGM (IMMUNOFIXATION) 112 mg/dL (26-217); IMMUNOFIXATION RESULT Note: (.); M-SPIKE (IEP) Not Observed g/dL (Not Observed); TOTAL PROTEIN 7.3 g/dL (6.0-8.5)
[2024-07-27] MEDS ORDERED: Dulaglutide (Trulicity) 0.75 MG SQ SCH (09:00)
== END 2024-07-22 17:40 | DRG 552 ==
LOC: EDH 15:13 → EDHIP 21:21 → 3CH 22:09
PROVIDERS: ADMIT Hospitalist; ATTEND Hospitalist
DX: S22.088A Other fracture of T11-T12 vertebra, initial encounter for closed fracture (principal); E44.0 Moderate protein-calorie malnutrition; E87.1 Hypo-osmolality and hyponatremia; N39.0 Urinary tract infection, site not specified; D64.9 Anemia, unspecified; F03.90 Unspecified dementia, unspecified severity, without behavioral disturbance, psychotic disturbance, mood disturbance, and anxiety; I10 Essential (primary) hypertension; E11.65 Type 2 diabetes mellitus with hyperglycemia; W01.0XXA Fall on same level from slipping, tripping and stumbling without subsequent striking against object, initial encounter; M81.0 Age-related osteoporosis without current pathological fracture; Z96.611 Presence of right artificial shoulder joint; E87.8 Other disorders of electrolyte and fluid balance, not elsewhere classified; E86.0 Dehydration; F41.9 Anxiety disorder, unspecified; M41.9 Scoliosis, unspecified; Z68.24 Body mass index [BMI] 24.0-24.9, adult; Y93.89 Activity, other specified; Y92.008 Other place in unspecified non-institutional (private) residence as the place of occurrence of the external cause; Z79.899 Other long term (current) drug therapy
CPT/HCPCS: 36415; 70450; 72128; 72131; 72146; 80048; 80053; 80076; 81001; 82306; 82607; 82948; 83036; 83521; 83690; 83735; 84484; 85025; 85027; 86334; 87086; 93005; 96374; 96375; G0378; J0360; J0696; J1815; J1885; J2270; J2405; J3475; J7030